=== PATIENT | female | born 1935 | race Caucasian/White ===

== ENCOUNTER 2017-06-25 10:50 | Inpatient (IN) | payer MEDICARE, OTHER ==
[~2017-06-25] VITALS: Ht 160 cm; Wt 57.6 kg
--- NOTE | 2017-06-25 11:00 | NUR ---
ASSUME PT CARE. PT IS HERE FOR GENERALIZED ITCHING, HIVES AND LIGHTHEADEDNESS THAT STARTED AT 0800 TODAY. TOOK BENADRYL W/ NO RELIEF. ON MONITOR. STABLE VITALS. SEEN BY FAUSTINA.
--- NOTE | 2017-06-25 11:12 | NUR ---
IV LINE STARTED BLOOD DRAWN AND SENT TO LAB.
[2017-06-25] MEDS ORDERED: LORAZEPAM INJ 2 MG/ML VIAL ONE (11:13)
[2017-06-25 11:15] LABS: BASOPHILS % (AUTO) 0.2 % (0.0-2.0); EOSINOPHILS # (AUTO) 0.3 /CMM (0.0-0.7); EOSINOPHILS % (AUTO) 2.5 % (0.0-6.0); HEMATOCRIT 38 % (33-45); HEMOGLOBIN 12.5 g/dL (11.5-14.8); LYMPHOCYTES # (AUTO) 2.5 /CMM (0.8-4.8); LYMPHOCYTES % (AUTO) 18.9 % (20.0-44.0); MEAN CORPUSCULAR HEMOGLOBIN 31 PG (26.0-33.0); MEAN CORPUSCULAR HGB CONC 33 g/dl (31.0-36.0); MEAN CORPUSCULAR VOLUME 93 fL (82-100); MONOCYTES # (AUTO) 1.1 /CMM (0.1-1.30); MONOCYTES % (AUTO) 8.3 % (2.0-12.0); NEUTROPHILS # (AUTO) 9.4 /CMM (1.8-8.9); NEUTROPHILS % (AUTO) 70.1 % (43.0-81.0); PLATELET COUNT (AUTO) 452 /CMM (150-450); RDW COEFFICIENT OF VARIATION 12.6 (11.5-15.0); RED BLOOD CELL COUNT(AUTO) 4.07 MIL/uL (4.0-5.2); WHITE BLOOD COUNT (AUTO) 13.3 K/uL (4.3-11.0)
[2017-06-25 11:27] LABS: CARBON DIOXIDE 21 mmol/L (21-32); CHLORIDE 102 mmol/L (98-107); CREATININE 1.6 mg/dL (0.6-1.3); GLUCOSE 242 mg/dL (74-106); POTASSIUM 4.1 mmol/L (3.5-5.1); SODIUM SERUM 135 mmol/L (136-145); UREA NITROGEN, BLOOD 17 mg/dL (7-18)
[2017-06-25 11:30] LABS: INR 0.95 (0.87-1.13); PROTHROMBIN TIME 9.9 SECS (9.5-12.7)
[2017-06-25] MEDS ORDERED: IV NS 0.9% 500 ML BAG IV ONE (11:30)
[2017-06-25] MEDS ORDERED: LORAZEPAM 0.5 MG TABLET PO ONE (11:30)
[2017-06-25 11:33] LABS: ALANINE AMINOTRANSFERASE 26 U/L (12-78); ALBUMIN 3.9 g/dL (3.4-5.0); ALKALINE PHOSPHATASE 85 U/L (46-116); ASPARTATE AMINOTRANSFERASE 26 U/L (15-37); BILIRUBIN,DIRECT 0.1 mg/dL (0.0-0.2); BILIRUBIN,TOTAL 0.3 mg/dL (0.2-1.0); TOTAL PROTEIN, SERUM 7.1 g/dL (6.4-8.2)
[2017-06-25 11:35] LABS: TROPONIN I < 0.017 ng/mL (0.00-0.056)
--- NOTE | 2017-06-25 12:02 | NUR ---
CALLED [employer], TARIFF EXPERT WAS PAGED.
[2017-06-25] MEDS ORDERED: ALPR0.5T8 PO (12:08)
[2017-06-25] MEDS ORDERED: AMLO1TAB65 PO (12:08)
[2017-06-25] MEDS ORDERED: ZOLP5TAB2 PO (12:08)
[2017-06-25] MEDS ORDERED: ROSU5TAB PO (12:08)
[2017-06-25] MEDS ORDERED: MONT10TA22 PO (12:08)
[2017-06-25] MEDS ORDERED: FLUT1DIS5 IH (12:08)
[2017-06-25] MEDS ORDERED: ALBU8.5H2 INH (12:08)
--- NOTE | 2017-06-25 12:43 | NUR ---
PATIENT WILL BE ADMITTED INTO TELE BED 312-2. NURSE LUNDBERG
--- NOTE | 2017-06-25 13:01 | NUR ---
REPORT GIVEN TO TAMIKA. PT AWAITING TRANSFER TO FLOOR.
[2017-06-25] MEDS ORDERED: ACETAMINOPHEN 325 MG TABLET PO PRN (13:30)
[2017-06-25] MEDS ORDERED: ONDANSETRON HCL/PF 4 MG/2 ML VIAL IVP PRN (13:30)
[2017-06-25] MEDS ORDERED: ALPRAZOLAM 0.5 MG TABLET PO PRN (13:30)
[2017-06-25] MEDS ORDERED: ALBUTEROL SULFATE 8 GM HFA.AER.AD IH PRN (13:30)
[2017-06-25 14:00] VITALS: BP 134/67
--- NOTE | 2017-06-25 14:00 | NUR ---
LABORER [employer] OPENING NOTE PATIENT WAS TRANSFERED FROM ER TO TELE. EXTERNAL MONITORS APPLIED. SR 80. VS WNL. DENIES CHEST PAIN/DIZZINESS/DISCOMFORT AT THIS TIME. PATIENT IS IN BED, ALL NEEDS ARE MET, BED IN LOWEST POSITION, SIDE RAILS UP X 2, HIGH FOWLERS.
[2017-06-25 14:05] VITALS: BP 137/58
[2017-06-25 14:08] VITALS: BP 127/64
[2017-06-25 14:20] LABS: HEMOGLOBIN 12.1 g/dL (11.5-14.8)
[2017-06-25 16:00] VITALS: BP 137/59
[2017-06-25] MEDS: IV NS 0.9% 1,000 ML IV PRN (16:34)
[2017-06-25] MEDS ORDERED: ALBUTEROL FS 2.5 MG/3 ML VIAL.NEB NEB PRN (19:30)
--- NOTE | 2017-06-25 19:30 | NUR ---
QUILL BUNCHER AND SORTER INITIAL NOTE RECEIVED PT AWAKE AND ALERT, ORIENTED X 3, NO COMPLAINT OF PAIN OR RESPIRATORY DISTRESS NOTED DURING PHYSICAL ASSESSMENT, PT IS CLEAN/DRY AND COMFORTABLE, NEEDS WILL BE ANTICIPATED AND ATTENDED TO, SAFETY MEASURES WILL BE KEPT AT ALL TIMES.
--- NOTE | 2017-06-25 19:38 | NUR ---
HARVEST WORKER NOTE HARVEST WORKER CLOSING NOTE PATIENT IS RESTING IN BED. CAREGIVER AT THE BEDSIDE. BED IS LOCKED IN THE LOWEST POSITION, SIDE RAILS UP X 2, JIMENEZ'S POSITION. ALL NEEDS WARTHIN REACH. VS WNL.SPO2 98% RA. DENIES PAIN/DISCOMFORT. EXTERNAL MONITOR SR HR 76. WILL ENDORSE TO THE NEXT SHIFT FOR DEEPA.
[2017-06-25 20:00] VITALS: BP 117/53
[2017-06-25] MEDS ORDERED: ZOLPIDEM TARTRATE 5 MG TABLET PO SCH (22:00)
[2017-06-25] MEDS ORDERED: diphenhydrAMINE HCL 25 MG CAPSULE ONE (22:23)
[2017-06-25] MEDS ORDERED: diphenhydrAMINE HCL ELIX 25 MG/10 ML UDC PO PRN (22:30)
[2017-06-26] VITALS: BP 116/56
[2017-06-26 04:00] VITALS: BP 113/62
--- NOTE | 2017-06-26 06:18 | NUR ---
SPACE TECHNOLOGIST CLOSING NOTE PT REMAINED STABLE DURING BIOMEDICAL ENGINEERING INTERNSHIP, NO CHANGE IN CONDITION NOTED, WILL ENDORSE TO AM NURSE FOR DEEPA.
--- NOTE | 2017-06-26 07:30 | NUR ---
RECEIVED PT. THIS AM,ALERT AND ORIENTED,NO COMPLAINTS OFFERED.ON TELE.
[2017-06-26 08:00] VITALS: BP 111/45
[2017-06-26] MEDS ORDERED: diphenhydrAMINE HCL 25 MG CAPSULE PO PRN (08:00)
[2017-06-26 08:06] LABS: BASOPHILS % (AUTO) 0.3 % (0.0-2.0); EOSINOPHILS # (AUTO) 0.6 /CMM (0.0-0.7); EOSINOPHILS % (AUTO) 6.7 % (0.0-6.0); HEMATOCRIT 32 % (33-45); HEMOGLOBIN 10.6 g/dL (11.5-14.8); LYMPHOCYTES # (AUTO) 2.6 /CMM (0.8-4.8); LYMPHOCYTES % (AUTO) 28.8 % (20.0-44.0); MEAN CORPUSCULAR HEMOGLOBIN 32 PG (26.0-33.0); MEAN CORPUSCULAR HGB CONC 34 g/dl (31.0-36.0); MEAN CORPUSCULAR VOLUME 95 fL (82-100); MONOCYTES # (AUTO) 0.5 /CMM (0.1-1.30); MONOCYTES % (AUTO) 5.3 % (2.0-12.0); NEUTROPHILS # (AUTO) 5.3 /CMM (1.8-8.9); NEUTROPHILS % (AUTO) 58.9 % (43.0-81.0); PLATELET COUNT (AUTO) 317 /CMM (150-450); RDW COEFFICIENT OF VARIATION 13.6 (11.5-15.0); RED BLOOD CELL COUNT(AUTO) 3.33 MIL/uL (4.0-5.2)
[2017-06-26] MEDS ORDERED: ROSUVASTATIN CALCIUM 2.5 MG PO SCH (08:30)
--- NOTE | 2017-06-26 08:30 | NUR ---
DR. ACRRILLO IN TELE DC,D.PT. UP TO BATHROOM SEVERAL TIMES,TOLERATED WELL.
[2017-06-26 08:33] LABS: CALCIUM, SERUM 8.5 mg/dL (8.5-10.1); CARBON DIOXIDE 25 mmol/L (21-32); CHLORIDE 109 mmol/L (98-107); CREATININE 1.1 mg/dL (0.6-1.3); GLUCOSE 99 mg/dL (74-106); MAGNESIUM 1.8 mg/dL (1.8-2.4); POTASSIUM 4.8 mmol/L (3.5-5.1); SODIUM SERUM 140 mmol/L (136-145); UREA NITROGEN, BLOOD 14 mg/dL (7-18)
[2017-06-26] MEDS: IV NS 0.9% 1,000 ML IV PRN (08:48)
[2017-06-26] MEDS ORDERED: FLUTICASONE/VILANTEROL 1 EACH BLST.W.DEV IH SCH (09:00)
[2017-06-26] MEDS ORDERED: MONTELUKAST SODIUM (10MG) 10 MG TABLET PO SCH (09:00)
[2017-06-26] MEDS ORDERED: PANTOPRAZOLE 40 MG TABLET.DR PO SCH (09:00)
[2017-06-26] MEDS ORDERED: OLMESARTAN MED PO SCH (09:00)
[2017-06-26] MEDS ORDERED: AMLODIPINE BES PO SCH (09:00)
--- NOTE | 2017-06-26 10:30 | NUR ---
IV HEP LOCKED.
--- NOTE | 2017-06-26 11:00 | NUR ---
DISCH. PHOTOS TAKEN,PLACED IN CHART.
[2017-06-26 12:25] VITALS: BP 133/52
[2017-06-26 12:28] VITALS: BP 137/61
--- NOTE | 2017-06-26 12:30 | NUR ---
DR. SOLARES,ROGE LINDSAY IN TO SEE PT. ORDERS PER NAT FOR DC TODAY.
[2017-06-26 12:31] VITALS: BP 133/63
--- NOTE | 2017-06-26 13:18 | NUR ---
HEP LOCK OUT,BANDAGE TO SITE. REVIEWED DC INSTRUCTIONS,SON HERE AND REVIEWED INSTRUCTIONS WITH SON WELL.BELONGING SHEET SIGNED,WALKED DOWN TO LOBBY ACCOMPANIED BY WAREHOUSE SELECTOR AND SON.AWARE TO FOLLOW UP WITH PMD AND DR. CARRILLO.
== END 2017-06-26 14:00 | disposition home or self-care (01) | DRG 73 ==
LOC: ER 10:52 → TELE 13:13 → MED 06-26 09:06
PROVIDERS: ADMIT Internal Medicine; ATTEND Internal Medicine
DX: G90.8 Other disorders of autonomic nervous system (principal); N17.0 Acute kidney failure with tubular necrosis; E87.1 Hypo-osmolality and hyponatremia; A08.4 Viral intestinal infection, unspecified; J44.9 Chronic obstructive pulmonary disease, unspecified; E86.0 Dehydration; F41.9 Anxiety disorder, unspecified; Z79.899 Other long term (current) drug therapy; M81.0 Age-related osteoporosis without current pathological fracture; I10 Essential (primary) hypertension; E86.1 Hypovolemia; D63.8 Anemia in other chronic diseases classified elsewhere
CPT/HCPCS: 36415; 70450-TC; 71010-TC; 80048-TC; 80076-TC; 83735-TC; 84100-TC; 84484-TC; 85025-TC; 85027-TC; 85730-TC; 87081-TC; 93307-TC; 95819-TC; A4606; J2060; J7030; J7040; Q0163; Z7610